=== PATIENT | male | born 1955 | race Caucasian/White ===

== ENCOUNTER 2017-07-31 14:44 | Emergency (ER) | payer OTHER ==
[2017-07-31 14:52] VITALS: BMI 26.6
--- NOTE | 2017-07-31 14:52 | PDOC ---
Rapid Medical Evaluation Time Seen by Provider: 07/31/17 14:47 Medical Evaluation: Allergies Allergy/AdvReac Type Severity Reaction Status Date / Time No Known Drug Allergies Allergy Verified 03/15/15 12:34 I have performed a brief in-person evaluation of this patient. The patient presents with a chief complaint of: right facial/mouth swelling x [address] corbett yesterday who started him on amoxicillin with no improvement Pertinent physical exam findings: Swelling and erythema over right maxiallary region of face with TTP. Temp 99.8. tachycardic I have ordered the following: labs, CT facial bones The patient will proceed to the ED for further evaluation. Discharge Disposition - Diagnosis Cellulitis and abscess of face - Referrals - Patient Instructions - Post Discharge Activity
[2017-07-31 16:03] LABS: BASO % 0.7 % (0-2.0); EOS % 0.8 % (0-4.5); HEMATOCRIT 42.3 % (35.4-49); HEMOGLOBIN 14.2 GM/dL (11.7-16.9); LYMPH % 12.5 % (8-40); MCH 29.8 pg (25.7-33.7); MCHC 33.7 g/dl (32.0-35.9); MEAN CELL VOLUME 88.6 fl (80-96); MEAN PLT VOLUME 8.2 fl (7.5-11.1); MONO % 8.3 % (3.8-10.2); NEUT % 77.7 % (42.8-82.8); PLATELET COUNT 242 K/MM3 (134-434); RBC 4.77 M/mm3 (4.00-5.60); RDW 12.7 % (11.9-15.9); WHITE BLOOD COUNT 11.4 K/mm3 (4.0-10.0)
[2017-07-31] MEDS ORDERED: ACETAMINOPHEN 325 MG TABLET (FP) PO ONE (16:20)
[2017-07-31] MEDS ORDERED: CLINDAMYCIN 600MG PREMIX IVPB 600 MG/50 ML BAG IVPB ONE ×2 (16:28→16:43)
[2017-07-31 16:35] LABS: ALBUMIN 3.3 g/dl (3.4-5.0); ANION GAP 8 (8-16); BLOOD UREA NITROGEN 22 mg/dL (7-18); CALCIUM 9.2 mg/dL (8.5-10.1); CHLORIDE 100 mmol/L (98-107); CO2 29 mmol/L (21-32); CREATININE 1.3 mg/dL (0.7-1.3); GLUCOSE,RANDOM 178 mg/dL (74-106); POTASSIUM 3.5 mmol/L (3.5-5.1); SGOT/AST 19 U/L (15-37); SGPT/ALT 31 U/L (12-78); SODIUM 137 mmol/L (136-145); TOT PROT 7.3 g/dl (6.4-8.2)
[2017-07-31 16:42] LABS: ALK PHOS 56 U/L (45-117); BILIRUBIN,TOTAL 0.5 mg/dL (0.2-1.0)
--- NOTE | 2017-07-31 16:42 | PDOC ---
History of Present Illness <Chris Sol - Last Filed: 07/31/17 17:22> - History of Present Illness Initial Comments: 07/31/17 16:59 61y/o M HTN p/w worsening R facial swelling for about 4-5 days, possibly originaring from right molar. Seen by Dr. Vasquez yesterday and started on amoxicillin without relief, so presents for evaluation. chills, no fever. no difficulty breathing/swallowing. <Lit Avery - Last Filed: 07/31/17 17:26> - General Chief Complaint: Pain Stated Complaint: SWOLLEN FACE (PCP SENT) Time Seen by Provider: 07/31/17 14:47 Past History <Chris Sol - Last Filed: 07/31/17 17:22> - Past Medical History Anemia: No Asthma: No Cancer: No Cardiac Disorders: No CVA: No COPD: No CHF: No DVT: No Dementia: No Diabetes: No GI Disorders: No Disorders: No HTN: Yes Hypercholesterolemia: No (BORDERLINE) Liver Disease: No Seizures: No Thyroid Disease: No - Surgical History Abdominal Surgery: No Appendectomy: Yes (1963) Cardiac Surgery: No Cholecystectomy: No Lung Surgery: No Neurologic Surgery: No Orthopedic Surgery: No - Suicide/Smoking/Psychosocial Hx Smoking History: Never smoked Have you smoked in the past 12 months: No Information on smoking cessation initiated: No Hx Alcohol Use: Yes (2-3 BEERS A DAY) Drug/Substance Use Hx: No Substance Use Type: Alcohol Hx Substance Use Treatment: No <Lit Avery - Last Filed: 07/31/17 17:26> - Past Medical History Allergies/Adverse Reactions: Allergies Allergy/AdvReac Type Severity Reaction Status Date / Time No Known Drug Allergies Allergy Verified 07/31/17 14:47 Home Medications: Ambulatory Orders Acetaminophen [Pain Relief] 650 mg PO ASDIR PRN 03/23/15 Amoxicillin - [Amoxicillin 500mg Capsule -] 500 mg PO Q6H 07/31/17 Fenofibrate 134 mg PO DAILY 07/31/17 Losartan/Hydrochlorothiazide [Losartan-Hctz 100-25 mg Tab] 1 each PO DAILY 07/31 Review of Systems - Review of Systems Able to Perform ROS?: Yes Is the patient limited [place] proficient: No Constitutional: Yes: Symptoms Reported, Fever HEENTM: Yes: See HPI Respiratory: No: Symptoms reported Cardiac (ROS): No: Symptoms Reported ABD/GI: No: Symptoms Reported : No: Symptoms Reported Musculoskeletal: No: Symptoms Reported Integumentary: No: Symptoms Reported Neurological: No: Symptoms reported All Other Systems: Reviewed and Negative <Lit Avery - Last Filed: 07/31/17 17:26> *Physical Exam - Vital Signs Last Vital Signs Temp Pulse Resp BP Pulse Ox 99.8 F H 113 H 18 146/63 100 07/31/17 14:49 07/31/17 14:49 07/31/17 14:49 07/31/17 14:49 07/31/17 14:49 <Chris Sol - Last Filed: 07/31/17 17:22> - Vital Signs Last Vital Signs Temp Pulse Resp BP Pulse Ox 99.8 F H 113 H 18 146/63 100 07/31/17 14:49 07/31/17 14:49 07/31/17 14:49 07/31/17 14:49 07/31/17 14:49 - Physical Exam General Appearance: Yes: Nourished, Appropriately Dressed, Apparent Distress, Mild Distress HEENT: positive: EOMI, KENDELL, Other (right cheek swollen, red, non-tender, solid , non fluctuant). negative: Normal ENT Inspection Neck: positive: Trachea midline. negative: Tender Respiratory/Chest: positive: Lungs Clear, Normal Breath Sounds. negative: Chest Tender, Respiratory Distress Cardiovascular: positive: Regular Rhythm, S1, S2, Tachycardia Gastrointestinal/Abdominal: positive: Normal Bowel Sounds, Flat, Soft. negative : Tender Musculoskeletal: positive: Normal Inspection. negative: CVA Tenderness Extremity: positive: Normal Capillary Refill, Normal Inspection, Normal Range of Motion Integumentary: positive: Normal Color, Dry, Warm Neurologic: positive: Fully Oriented, Alert, Normal Mood/Affect, Normal Response <Lit Avery - Last Filed: 07/31/17 17:26> ED Treatment Course - LABORATORY CBC & Chemistry Diagram: 07/31/17 15:43 07/31/17 15:43 - ADDITIONAL ORDERS Additional order review: Laboratory Results 07/31/17 07/31/17 15:43 15:43 Sodium 137 Potassium 3.5 Chloride 100 Carbon Dioxide 29 Anion Gap 8 BUN 22 H Creatinine 1.3 Creat Clearance w eGFR 55.94 Random Glucose 178 H Lactic Acid 2.0 Calcium 9.2 Total Bilirubin 0.5 AST 19 ALT 31 Alkaline Phosphatase 56 Total Protein 7.3 Albumin 3.3 L 07/31/17 15:43 RBC 4.77 MCV 88.6 MCHC 33.7 RDW 12.7 MPV 8.2 Neutrophils % 77.7 Lymphocytes % 12.5 Monocytes % 8.3 Eosinophils % 0.8 Basophils % 0.7 - Medications Given in the ED: ED Medications Discontinued Medications Generic Name Dose Route Start Last Admin Trade Name Freq PRN Reason Stop Dose Admin Clindamycin Phosphate 600 mg in 50 mls @ 100 mls/hr 07/31/17 16:28 07/31/17 16:52 Cleocin 600 Mg Premix Ivpb - IVPB 07/31/17 16:57 100 mls/hr ONCE ONE Administration Protocol <Chris Sol - Last Filed: 07/31/17 17:22> - LABORATORY CBC & Chemistry Diagram: 07/31/17 15:43 07/31/17 15:43 - ADDITIONAL ORDERS Additional order review: Laboratory Results 07/31/17 15:43 Lactic Acid 2.0 07/31/17 15:43 RBC 4.77 MCV 88.6 MCHC 33.7 RDW 12.7 MPV 8.2 Neutrophils % 77.7 Lymphocytes % 12.5 Monocytes % 8.3 Eosinophils % 0.8 Basophils % 0.7 <Lit Avery - Last Filed: 07/31/17 17:26> Medical Decision Making - Medical Decision Making 07/31/17 17:03 61m with dental/facial abcess with no relief after amoxicillin. Will start IV clinda and transfer to [facility] service for drainage. 07/31/17 17:25 CT facial bone: There is significant soft tissue swelling over right side of the face, right cheek as well as crossing the midline over the left side of the face. There is focal low- attenuation density/ collection over right side of the maxillary ridge measuring 2.7 x 2 x 1.5 cm suggestive of an abscess with a tiny intraluminal air pockets. There is also a questionable small abscess along the anterolateral margin of the left maxillary ridge measuring 1.4 cm. Chronic sinusitis involving the right maxillary antrum anterolisthesis extent right ethmoid air cells. Case discussed with Ms. Meliza Jaime, caring physician office clerk assistant in [facility]. CT scan of the orbits without intravenous contrast. The orbits were included in the above described CT scan of the facial bones. See discussion above. Both orbits appear unremarkable. Soft tissue swelling is extending to the right inferior. PAtient accepted to [facility] by way of ED <Lit Avery - Last Filed: 07/31/17 17:26> *DC/Admit/Observation/Transfer - Transfer to Acute Care Facility Receiving Facility: [facility] Accepting Physician:: Lalo <Chris Sol - Last Filed: 07/31/17 17:22> <Lit Avery - Last Filed: 07/31/17 17:26> Diagnosis at time of Disposition: Cellulitis and abscess of face - Referrals Referrals: Christian Vasquez MD [Primary Care Provider] -
--- NOTE | 2017-07-31 16:53 | PDOC ---
Attending Attestation - Resident Resident Name: BennieLit - ED Attending Attestation I have performed the following: I have examined & evaluated the patient, The case was reviewed & discussed with the resident, I agree w/resident's findings & plan - HPI HPI: 07/31/17 16:49 61y/o M HTN p/w worsening R facial swelling in setting of dental pain for about 4-[address] Vasquez yesterday and started on amoxicillin without relief , so presents for evaluation. chills, no fever. no difficulty breathing/ swallowing. - Physicial Exam PE: 07/31/17 16:50 Low-grade fever, slight tachycardia Obvious right facial swelling/erythema/warmth with induration, fluctuance along the right upper dental region with tender gingiva and poor dentition airway patent without stridor, handling secretions neck supple, trachea midline - Medical Decision Making 07/31/17 16:53 61-year-old male with right upper dental infection now complicated by facial cellulitis and abscess. Labs, antipyretics Maxillofacial CT IV antibiotics Will likely need transfer for dental/OMFS care will discuss with Dr. Christian Vasquez, pt's PCP 07/31/17 17:21 accepted for transfer to [facility] for OMFS evaluation, patient agrees. Dr. Hopson of OMFS, ED to ED accepted by Dr. Diaz.
[2017-07-31] MEDS ORDERED: ACETAMINOPHEN 325 MG TABLET (FP) ONE (18:20)
[2017-07-31 18:53] VITALS: BP 132/82; PULSE 95; TEMP 102
--- NOTE | 2017-08-01 09:18 | PDOC ---
Patient Follow-up (Call Back) - Post ED Follow - Up Disposition at time of original discharge: TRANSFER ACUTE CARE/OTHER HOSP Reason for Call Back: Abnwl. Microbiology (positive blood cultures. pt was transfered to [facility]
== END 2017-07-31 18:30 | disposition short-term general hospital (02) ==
LOC: JER 14:44
DX: L02.01 Cutaneous abscess of face (principal); I10 Essential (primary) hypertension; E78.00 Pure hypercholesterolemia, unspecified
CPT/HCPCS: 36415; 70480-TC; 70486-TC; 80053; 83605; 85025; 87040; 87186; 99284-25